=== PATIENT | female | born 1965 | race Caucasian/White ===

== ENCOUNTER 2022-01-12 07:55 | Emergency (ER) | payer OTHER ==
[~2022-01-12] VITALS: Ht 167.6 cm; Wt 60.3 kg
[~2022-01-12 07:55] MED LIST: CITALOPRAM HBR10 MG PO; CITALOPRAM HBR40 MG PO; CLONAZEPAM0.5 MG PO; DULOXETINE HCL30 MG PO; GEODON20 MG PO; LORAZEPAM1 MG PO; PERCOCET 7.5-31 EACH PO; TRAZODONE HCL50 MG PO
[2022-01-12] MEDS ORDERED: MAGNESIUM100 MG PO (08:20)
[2022-01-12] MEDS ORDERED: COQ-10100 MG PO (08:20)
[2022-01-12] MEDS ORDERED: ZINC50 MG PO (08:21)
[2022-01-12] MEDS ORDERED: PREDNISONE20 MG PO (09:01)
== END 2022-01-12 09:23 | disposition home or self-care (01) ==
LOC: ED 07:55
DX: M54.50 Low back pain, unspecified (principal); Z79.899 Other long term (current) drug therapy; Z88.5 Allergy status to narcotic agent
CPT/HCPCS: 99283

== ENCOUNTER 2022-04-22 11:21 | Emergency (ER) | payer OTHER ==
[~2022-04-22] VITALS: Ht 167.6 cm; Wt 54.4 kg
[~2022-04-22 11:21] MED LIST changes: +COQ-10100 MG PO; +MAGNESIUM100 MG PO; +PREDNISONE20 MG PO; +ZINC50 MG PO
[2022-04-22] MEDS ORDERED: CITALOPRAM HBR40 MG PO (11:42)
[2022-04-22] MEDS ORDERED: TRAZODONE HCL50 MG PO (11:43)
[2022-04-22] MEDS ORDERED: CLONAZEPAM0.5 MG PO (16:04)
== END 2022-04-22 16:30 | disposition home or self-care (01) ==
LOC: ED 11:21
DX: G25.9 Extrapyramidal and movement disorder, unspecified (principal); Z88.8 Allergy status to other drugs, medicaments and biological substances; Z88.5 Allergy status to narcotic agent; Z79.899 Other long term (current) drug therapy
CPT/HCPCS: 96374; 96375; 99283-25; J1200; J2060

== ENCOUNTER 2023-01-27 10:40 | Emergency (ER) | payer OTHER ==
[~2023-01-27] VITALS: Ht 167.6 cm; Wt 54.4 kg
--- OUTSIDE RECORDS SUMMARY | 2023-01-27 10:42 | XMS ---
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 E.DNolberto VISIT COUNT (12 MO.) 2 [facility]EC[facility] Cervantes TOTAL 2 NOTE: Visits indicate total known visits. ED/UCC VISIT TRACKING (12 MO.) 01/27/2023 10:41 [facility] TYPE: Emergency COMPLAINT: - MEDICATION REACTION,JERKING,HEADACHE,THROAT BRO 04/22/2022 11:23 [facility] [place] TYPE: Emergency COMPLAINT: - MEDICATION REACTION, JERKING, TWITCHING DIAGNOSES: - Allergy status to other drugs, medicaments and biological substances - Allergy status to narcotic agent - Other retirement (current) drug therapy - Extrapyramidal and movement disorder, unspecified INPATIENT VISIT TRACKING (12 MO.) No inpatient visits to display in this time frame [email or web address]
[2023-01-27] MEDS ORDERED: SERTRALINE HCL150 MG PO (10:57)
[2023-01-27] MEDS ORDERED: HYDROXYZINE HCL25 MG PO (10:57)
== END 2023-01-27 11:56 | disposition home or self-care (01) ==
LOC: ED 10:40
DX: G24.01 Drug induced subacute dyskinesia (principal); T43.225A Adverse effect of selective serotonin reuptake inhibitors, initial encounter; Z88.8 Allergy status to other drugs, medicaments and biological substances; Z88.5 Allergy status to narcotic agent; Z79.899 Other long term (current) drug therapy
CPT/HCPCS: 99283

== ENCOUNTER 2023-12-03 14:17 | Emergency (ER) | payer OTHER ==
[~2023-12-03] VITALS: Ht 167.6 cm; Wt 49.4 kg
--- OUTSIDE RECORDS SUMMARY | ~2023-12-03 | XMS | Continuity of Care Document ---
Demographics + + + | Address | [address] | | | [place] [address] | + + + | Preferred Language | Unknown | + + + | Marital Status | | + + + | Temple Affiliation | Unknown | + + + | Race | White | + + + | Ethnic Group | Not or | + + + Author + + + | Author | [facility] | + + + | Organization | [facility] | + + + | Address | [address] | | | [place] [address] | + + + | Phone | | + + + Care Team Providers + + + + | Care Water Chemist Name | Role | Phone | + + + + Unavailable | Unavailable | + + + + Unavailable | Unavailable | + + + + Allergies No information. Encounters No information. Functional Status No information. Immunizations No information. Medications + + + + | date | description | facility | + + + + | 2023-09-17 00:00 | Ambien 5 MG Oral Tablet | [facility] | | | | | + + + + | 2023-09-20 00:00 | Ambien 5 MG Oral Tablet | [facility] | | | | | + + + + | 2023-09-07 00:00 | Levothyroxine Sodium 50 | [facility] | | | MCG Oral Tablet | | + + + + | 2023-09-20 00:00 | Levothyroxine Sodium 50 | [facility] | | | MCG Oral Tablet | | + + + + | 2023-09-17 00:00 | clonazepam 0.5 MG Oral | [facility] | | | Tablet | | + + + + | 2023-10-13 00:00 | clonazepam 0.5 MG Oral | [facility] | | | Tablet | | + + + + | 2023-10-19 00:00 | clonazepam 0.5 MG Oral | [facility] | | | Tablet | | + + + + | 2023-10-26 00:00 | clonazepam 0.5 MG Oral | [facility] | | | Tablet | | + + + + | 2023-09-17 00:00 | clonazePAM 0.5 MG Oral | [facility] | | | Tablet | | + + + + | 2023-10-13 00:00 | clonazePAM 0.5 MG Oral | [facility] | | | Tablet | | + + + + | 2023-10-19 00:00 | clonazePAM 0.5 MG Oral | [facility] | | | Tablet | | + + + + | 2023-10-26 00:00 | clonazePAM 0.5 MG Oral | [facility] | | | Tablet | | + + + + | 2023-09-17 00:00 | zolpidem tartrate 5 MG | [facility] | | | Oral Tablet [Ambien] | | + + + + | 2023-09-20 00:00 | zolpidem tartrate 5 MG | [facility] | | | Oral Tablet [Ambien] | | + + + + | 2023-09-07 00:00 | levothyroxine sodium 0.05 | [facility] | | | MG Oral Tablet | | + + + + | 2023-09-20 00:00 | levothyroxine sodium 0.05 | [facility] | | | MG Oral Tablet | | + + + + Problems No information. Procedures No information. Results/Labs +--------+--------+ +---------+--------+---------+ | test | date | facility | value | unit | notes | +--------+--------+ +---------+--------+---------+ +-------+ | [facility] | +-------+ +-------+ + + + + + | [facility]SH | 2023-09-20 | [facility] | 118.00 | mIU/ml | (missing) | | | 07:15 | [facility] | | [facility] | | | | +-------+ + + + + + + + | TSH w/FT4 Reflex | + + + + + +---------+ + + | TSH w/FT4 | 2023-09-20 | [facility] | 1.510 | uIU/ml | (missing) | | Reflex | 07:15 | [facility] | | | | | | | [facility] | | | | + + + +---------+ + + + + | ESTRADIOL | + + + + + + + + + | ESTRADIOL | 2023-09-20 | [facility] | <25 pg/ml | (missing) | (missing) | | | 07:15 | [facility] | | | | | | | [facility] | | | | + + + + + + + Social History + + + + | date | description | facility | + + + + | 2023-09-15 00:00 | Never smoked tobacco | [facility] | | | (finding) | | + + + + | 2023-09-15 00:00 | Smoker (finding) | [facility] | | | | | + + + + | 2023-09-17 00:00 | Never smoked tobacco | [facility] | | | (finding) | | + + + + | 2023-09-17 00:00 | Smoker (finding) | [facility] | | | | | + + + + | 2023-11-03 00:00 | Never smoked tobacco | [facility] | | | (finding) | | + + + + | 2023-11-03 00:00 | Smoker (finding) | [facility] | | | | | + + + + Vital Signs + + + + + | date | measurement | value | units | + + + + + | 2023-09-17 00:00 | BMI | 17.6 | 1 | + + + + + | 2023-09-17 00:00 | BSA | 1.5 | 1 | + + + + + | 2023-09-17 00:00 | heart_rate | 1|1| | completed | + + + + + | 2023-09-17 00:00 | heart_rate | 84 | /min | + + + + + | 2023-09-17 00:00 | height_metric | 167.64 | cm | + + + + + | 2023-09-17 00:00 | height_standard | 66 | in | + + + + + | 2023-09-17 00:00 | weight_metric | 49.44 | kg | + + + + + | 2023-09-17 00:00 | weight_standard | 109 | lb | + + + + + | 2023-11-03 00:00 | BMI | 17.3 | 1 | + + + + + | 2023-11-03 00:00 | BSA | 1.5 | 1 | + + + + + | 2023-11-03 00:00 | heart_rate | 1|1| | completed | + + + + + | 2023-11-03 00:00 | heart_rate | 76 | /min | + + + + + | 2023-11-03 00:00 | height_metric | 167.64 | cm | + + + + + | 2023-11-03 00:00 | height_standard | 66 | in | + + + + + | 2023-11-03 00:00 | temperature_metric | 36.11 | C | | | | | | + + + + + | 2023-11-03 00:00 | | 97 | F | | | temperature_standar | | | | | d | | | + + + + + | 2023-11-03 00:00 | weight_metric | 48.53 | kg | + + + + + | 2023-11-03 00:00 | weight_standard | 107 | lb | + + + + +"
[~2023-12-03 14:17] MED LIST changes: +HYDROXYZINE HCL25 MG PO; +SERTRALINE HCL150 MG PO
[2023-12-03] MEDS ORDERED: BUSPIRONE HCL7.5 MG PO (14:56)
[2023-12-03] MEDS ORDERED: LEVOTHYROXINE50 MCG PO (14:56)
[2023-12-03] MEDS ORDERED: MIRTAZAPINE30 MG PO (14:57)
[2023-12-03 15:05] LABS: AMPHETAMINES, URINE NEGATIVE (NEGATIVE); BARBITURATES, URINE NEGATIVE (NEGATIVE); BENZODIAZEPINE, URINE NEGATIVE (NEGATIVE); BUPRENORPHINE, URINE NEGATIVE (NEGATIVE); CANNABINOID, URINE NEGATIVE (NEGATIVE); COCAINE, URINE NEGATIVE (NEGATIVE); ECSTASY, URINE NEGATIVE (NEGATIVE); FENTANYL, URINE NEGATIVE (NEGATIVE); METHADONE, URINE NEGATIVE (NEGATIVE); OPIATES, URINE NEGATIVE (NEGATIVE); OXYCODONE, URINE NEGATIVE (NEGATIVE); PHENCYCLIDINE, URINE NEGATIVE (NEGATIVE)
[2023-12-03 15:39] LABS: BILIRUBIN, URINE NEGATIVE (negative); BLOOD/HGB, URINE SMALL (Negative); KETONE, URINE NEGATIVE (Negative); LEUK ESTERASE, URINE NEGATIVE (negative); NITRITE, URINE NEGATIVE (negative)
[2023-12-03 15:43] LABS: EPITHELIAL CELLS, URINE SQUAMOUS 1+ /lpf (0-1+)
[2023-12-03 15:45] LABS: REFLEX CULTURE, URINE Yes (No)
[2023-12-03 15:54] LABS: MCH 31.7 (27-36)
[2023-12-03 15:56] LABS: BASOPHILS 0.5 % (0-2); EOSINOPHILS 0.4 % (0-6); HEMATOCRIT 40.3 % (35.0-50.0); HEMOGLOBIN 13.8 g/dL (12.0-18.0); LYMPHOCYTES 17.8 % (24-44); MCHC 34.3 g/dl (30-36); MCV 92.6 fl (81-99); MONOCYTES 8.3 % (0-12); PLATELET COUNT 211 K/uL (140-440); RBC 4.35 M/ul (4.3-5.7); RDW 12.9 (10.5-15.0)
[2023-12-03 16:17] LABS: ACETAMINOPHEN 0 ug/mL (10-30); ALBUMIN 3.6 g/dL (3.4-5.0); ALBUMIN/GLOBULIN RATIO 0.97 (1.1-2.4); ALCOHOL, MEDICAL <3 ng/dL (<3); ALKALINE PHOSPHATASE 80 U/L (46-116); ALT (SGPT) 19 U/L (14-59); ANION GAP 11.7 (7-21); AST (SGOT) 14 U/L (15-37); BILIRUBIN, TOTAL 0.4 ng/dL (0.2-1.0); BUN/CREATININE RATIO 17.85 (6.0-28.6); CALCIUM 8.7 mg/dL (8.5-10.1); CARBON DIOXIDE 31 mmol/L (21-32); CHLORIDE 103 mmol/L (98-107); CREATININE, SERUM 0.84 mg/dL (0.55-1.02); GLOMERULAR FILTRATION RATE,EST 81 mL/min (>60); POTASSIUM 3.7 mmol/L (3.5-5.1); PROTEIN, TOTAL 7.3 g/dL (6.4-8.2); SALICYLATE 0.4 mg/dL (2.8-20.0); UREA NITROGEN 15 mg/dL (7-18)
[2023-12-04] MEDS ORDERED: K-TAB ER20 MEQ PO (10:20)
[2023-12-04] MEDS ORDERED: FUROSEMIDE20 MG PO (10:20)
[2023-12-04] MEDS ORDERED: PREDNISONE20 MG PO (10:20)
[2023-12-06 07:33] VITALS: BP 108/62
== END 2023-12-06 07:33 ==
LOC: ED 14:17
PROVIDERS: Emergency Medicine
DX: R45.850 Homicidal ideations (principal); F29 Unspecified psychosis not due to a substance or known physiological condition; Z88.5 Allergy status to narcotic agent; Z88.8 Allergy status to other drugs, medicaments and biological substances; Z79.890 Hormone replacement therapy; Z79.899 Other long term (current) drug therapy
CPT/HCPCS: 36415; 80053; 80307; 81001; 84443; 85025; 87088; 99285; A9270; G0480; U0002

== ENCOUNTER 2024-09-12 10:02 | Emergency (ER) | payer OTHER ==
[~2024-09-12] VITALS: Ht 167.6 cm; Wt 47.1 kg
--- OUTSIDE RECORDS SUMMARY | ~2024-09-12 | XMS | Continuity of Care Document ---
Demographics + + + | Address | [address] | | | [place] [address] | + + + | Preferred Language | Unknown | + + + | Marital Status | | + + + | Anabaptist Affiliation | Unknown | + + + | Race | Unknown | + + + | Ethnic Group | Unknown | + + + Author + + + | Author | [place] | + + + | Organization | [place] | + + + | Address | [address] | | | [place] [address] | + + + | Phone | | + + + Care Team Providers + + + + | Care Frame Changer Name | Role | Phone | + + + + Unavailable | Unavailable | + + + + Unavailable | Unavailable | + + + + Allergies No information. Encounters No information. Functional Status No information. Immunizations No information. Medications + + + + | date | description | facility | + + + + | 2024-07-28 00:00 | traZODone HCl 100 MG Oral | [facility] | | | Tablet | | + + + + | 2024-07-28 00:00 | olanzapine 5 MG Oral | [facility] | | | Tablet | | + + + + | 2024-07-28 00:00 | OLANZapine 5 MG Oral | [facility] | | | Tablet | | + + + + | 2024-07-28 00:00 | trazodone hydrochloride | [facility] | | | 100 MG Oral Tablet | | + + + + Problems No information. Procedures No information. Results/Labs +--------+--------+ +---------+--------+---------+ | test | date | facility | value | unit | notes | +--------+--------+ +---------+--------+---------+ + + | LIPID PANEL | + + + + + +--------+ + + | VLDL | 2024-07-28 | [facility] | 17 | mg/dL | (missing) | | | 12:26 | Medical | | | | | | | Group | | | | + + + +--------+ + + | LDL | 2024-07-28 | [facility] | 151 | mg/dL | (missing) | | | 12:26 | Medical | | | | | | | Group | | | | + + + +--------+ + + | HDL | 2024-07-28 | [facility] | 70.2 | mg/dL | (missing) | | | 12:26 | Medical | | | | | | | Group | | | | + + + +--------+ + + | CHOLESTEROL | 2024-07-28 | [facility] | 238 | mg/dL | (missing) | | | 12:26 | Medical | | | | | | | Group | | | | + + + +--------+ + + | | 2024-07-28 | [facility] | 83 | mg/dL | (missing) | | TRIGLYCERIDE | 12:26 | Medical | | | | | S | | Group | | | | + + + +--------+ + + | NON-HDL | 2024-07-28 | [facility] | 168 | mg/dL | (missing) | | CHOL | 12:26 | Medical | | | | | | | Group | | | | + + + +--------+ + + | CHOL/HDL | 2024-07-28 | [facility] | 3.4 | (missing) | (missing) | | | 12:26 | Medical | | | | | | | Group | | | | + + + +--------+ + + + + | FREE T4/TSH | + + + + + +---------+ + + | TSH, 3rd | 2024-07-28 | [facility] | 0.768 | uIU/ml | (missing) | | GEN. | 12:26 | Medical | | | | | | | Group | | | | + + + +---------+ + + | FREE T4 | 2024-07-28 | [facility] | 1.77 | ng/dl | (missing) | | | 12:26 | Medical | | | | | | | Group | | | | + + + +---------+ + + + + | COMPREHENSIVE METABOLIC PANEL | + + + + + +--------+ + + | GLOBULIN | 2024-07-28 | [facility] | 2.1 | g/dl | (missing) | | | 12:26 | Medical | | | | | | | Group | | | | + + + +--------+ + + | ALKALINE | 2024-07-28 | [facility] | 79 | U/L | (missing) | | PHOS | 12:26 | Medical | | | | | | | Group | | | | + + + +--------+ + + | ALT(SGPT) | 2024-07-28 | [facility] | 10 | U/L | (missing) | | | 12:26 | Medical | | | | | | | Group | | | | + + + +--------+ + + | ALBUMIN | 2024-07-28 | [facility] | 4.5 | g/dl | (missing) | | | 12:26 | Medical | | | | | | | Group | | | | + + + +--------+ + + | A/G RATIO | 2024-07-28 | [facility] | 2.1 | (missing) | (missing) | | | 12:26 | Medical | | | | | | | Group | | | | + + + +--------+ + + | CALCIUM | 2024-07-28 | [facility] | 9.7 | mg/dL | (missing) | | | 12:26 | Medical | | | | | | | Group | | | | + + + +--------+ + + | ANION GAP | 2024-07-28 | [facility] | 13.1 | (missing) | (missing) | | | 12:26 | Medical | | | | | | | Group | | | | + + + +--------+ + + | AST(SGOT) | 2024-07-28 | [facility] | 13 | U/L | (missing) | | | 12:26 | Medical | | | | | | | Group | | | | + + + +--------+ + + | BILIRUBIN, | 2024-07-28 | [facility] | 0.61 | mg/dL | (missing) | | TOTAL | 12:26 | Medical | | | | | | | Group | | | | + + + +--------+ + + | CARBON | 2024-07-28 | [facility] | 29 | meq/L | (missing) | | DIOXIDE | 12:26 | Medical | | | | | | | Group | | | | + + + +--------+ + + | CHLORIDE | 2024-07-28 | [facility] | 103 | meq/L | (missing) | | | 12:26 | Medical | | | | | | | Group | | | | + + + +--------+ + + | CREATININE, | 2024-07-28 | [facility] | 0.62 | mg/dL | (missing) | | SERUM | 12:26 | Medical | | | | | | | Group | | | | + + + +--------+ + + | GLUCOSE | 2024-07-28 | [facility] | 94 | mg/dL | (missing) | | | 12:26 | Medical | | | | | | | Group | | | | + + + +--------+ + + | POTASSIUM | 2024-07-28 | [facility] | 4.1 | meq/L | (missing) | | | 12:26 | Medical | | | | | | | Group | | | | + + + +--------+ + + | PROTEIN | 2024-07-28 | [facility] | 6.6 | g/dL | (missing) | | | 12:26 | Medical | | | | | | | Group | | | | + + + +--------+ + + | SODIUM | 2024-07-28 | [facility] | 141 | meq/L | (missing) | | | 12:26 | Medical | | | | | | | Group | | | | + + + +--------+ + + | UREA | 2024-07-28 | [facility] | 13 | mg/dL | (missing) | | NITROGEN | 12:26 | Medical | | | | | | | Group | | | | + + + +--------+ + + | | 2024-07-28 | [facility] | 21.0 | (missing) | (missing) | | BUN/CREAT.RA | 12:26 | Medical | | | | | NABOR | | Group | | | | + + + +--------+ + + | GFR | 2024-07-28 | [facility] | 103 | ml/min | (missing) | | ESTIMATION | 12:26 | Medical | | | | | | | Group | | | | + + + +--------+ + + +-------+ | CBC | +-------+ + + + +--------+--------+ + | HEMOGLOBIN | 2024-07-28 | [facility] | 13.3 | g/dl | (missing) | | | 12:26 | Medical | | | | | | | Group | | | | + + + +--------+--------+ + | RDW | 2024-07-28 | [facility] | 12.5 | % | (missing) | | | 12:26 | Medical | | | | | | | Group | | | | + + + +--------+--------+ + | HEMATOCRIT | 2024-07-28 | [facility] | 37.5 | % | (missing) | | | 12:26 | Medical | | | | | | | Group | | | | + + + +--------+--------+ + | MONOCYTES | 2024-07-28 | [facility] | 7.4 | % | (missing) | | | 12:26 | Medical | | | | | | | Group | | | | + + + +--------+--------+ + | WBC | 2024-07-28 | [facility] | 3.7 | K/ul | (missing) | | | 12:26 | Medical | | | | | | | Group | | | | + + + +--------+--------+ + | BASOPHILS | 2024-07-28 | [facility] | 0.4 | % | (missing) | | | 12:26 | Medical | | | | | | | Group | | | | + + + +--------+--------+ + | EOSINOPHILS | 2024-07-28 | [facility] | 0.9 | % | (missing) | | | 12:26 | Medical | | | | | | | Group | | | | + + + +--------+--------+ + | LYMPHOCYTES | 2024-07-28 | [facility] | 30.9 | % | (missing) | | | 12:26 | Medical | | | | | | | Group | | | | + + + +--------+--------+ + | NEUTROPHILS | 2024-07-28 | [facility] | 60.4 | % | (missing) | | | 12:26 | Medical | | | | | | | Group | | | | + + + +--------+--------+ + | PLATELET | 2024-07-28 | [facility] | 187 | K/ul | (missing) | | COUNT | 12:26 | Medical | | | | | | | Group | | | | + + + +--------+--------+ + | MCH | 2024-07-28 | [facility] | 32 | pg | (missing) | | | 12:26 | Medical | | | | | | | Group | | | | + + + +--------+--------+ + | MCHC | 2024-07-28 | [facility] | 35 | g/dL | (missing) | | | 12:26 | Medical | | | | | | | Group | | | | + + + +--------+--------+ + | MCV | 2024-07-28 | [facility] | 90.4 | fl | (missing) | | | 12:26 | Medical | | | | | | | Group | | | | + + + +--------+--------+ + | RBC | 2024-07-28 | [facility] | 4.15 | M/ul | (missing) | | | 12:26 | Medical | | | | | | | Group | | | | + + + +--------+--------+ + + + | Reported Physicians | + + + + + + + + + | Reported | 2024-07-28 | [facility] | See Note | (missing) | (missing) | | Physicians | 12:26 | Medical | | | | | | | Group | | | | + + + + + + + + + | Reported Physicians | + + + + + + + + + | Reported | 2024-07-28 | [facility] | See Note | (missing) | (missing) | | Physicians | 12:26 | Medical | | | | | | | Group | | | | + + + + + + + Social History + + + + | date | description | facility | + + + + | 2024-07-31 00:00 | Never smoked tobacco | [facility] | | | (finding) | | + + + + | 2024-07-31 00:00 | Smoker (finding) | [facility] | + + + + Vital Signs + + + + + | date | measurement | value | units | + + + + + | 2024-07-28 00:00 | BMI | 18 | 1 | + + + + + | 2024-07-28 00:00 | BP_diastolic | 78 | mmHg | + + + + + | 2024-07-28 00:00 | BP_systolic | 122 | mmHg | + + + + + | 2024-07-28 00:00 | BSA | 1.6 | m2 | + + + + + | 2024-07-28 00:00 | heart_rate | 1|1| | completed | + + + + + | 2024-07-28 00:00 | heart_rate | 81 | /min | + + + + + | 2024-07-28 00:00 | height_metric | 167.64 | cm | + + + + + | 2024-07-28 00:00 | height_standard | 66 | in | + + + + + | 2024-07-28 00:00 | o2_saturation | 98 | % | + + + + + | 2024-07-28 00:00 | temperature_metric | 36.78 | C | | | | | | + + + + + | 2024-07-28 00:00 | | 98.2 | F | | | temperature_standar | | | | | d | | | + + + + + | 2024-07-28 00:00 | weight_metric | 50.71 | kg | + + + + + | 2024-07-28 00:00 | weight_standard | 111.8 | lb | + + + + +"
[~2024-09-12 10:02] MED LIST changes: +BUSPIRONE HCL7.5 MG PO; +FLEET ENEMA133 ML PR; +FUROSEMIDE20 MG PO; +GLYCERIN1 EACH PR; +K-TAB ER20 MEQ PO; +LEVOTHYROXINE50 MCG PO; +MIRALAX17 GM PO; +MIRTAZAPINE30 MG PO; +OLANZAPINE2.5 MG PO
[2024-09-12 10:41] LABS: BASOPHILS 0.7 % (0-2); EOSINOPHILS 0.3 % (0-6); HEMATOCRIT 39.8 % (35.0-50.0); HEMOGLOBIN 13.8 g/dL (12.0-18.0); LYMPHOCYTES 27.5 % (24-44); MCH 31.8 (27-36); MCHC 34.7 g/dl (30-36); MCV 91.5 fl (81-99); MONOCYTES 6.2 % (0-12); NEUTROPHILS 65.3 % (39-80); PLATELET COUNT 170 K/uL (140-440); RBC 4.35 M/ul (4.3-5.7); RDW 12.3 (10.5-15.0)
[2024-09-12 11:09] LABS: ACETAMINOPHEN 0 ug/mL (10-30); ALBUMIN 3.8 g/dL (3.4-5.0); ALBUMIN/GLOBULIN RATIO 1.15 (1.1-2.4); ALCOHOL, MEDICAL <3 ng/dL (<3); ALKALINE PHOSPHATASE 77 U/L (46-116); ALT (SGPT) 14 U/L (14-59); ANION GAP 7.6 (7-21); AST (SGOT) 14 U/L (15-37); BILIRUBIN, TOTAL 0.5 ng/dL (0.2-1.0); BUN/CREATININE RATIO 15.78 (6.0-28.6); CALCIUM 9.4 mg/dL (8.5-10.1); CARBON DIOXIDE 32 mmol/L (21-32); CHLORIDE 105 mmol/L (98-107); CREATININE, SERUM 0.76 mg/dL (0.55-1.02); GLOMERULAR FILTRATION RATE,EST 90 mL/min (>60); POTASSIUM 3.6 mmol/L (3.5-5.1); PROTEIN, TOTAL 7.1 g/dL (6.4-8.2); SALICYLATE 0.9 mg/dL (2.8-20.0); TSH, 3RD GENERATION 1.038 uIU/mL (0.358-3.740); UREA NITROGEN 12 mg/dL (7-18)
[2024-09-12 11:42] LABS: AMPHETAMINES, URINE NEGATIVE (NEGATIVE); BARBITURATES, URINE NEGATIVE (NEGATIVE); BENZODIAZEPINE, URINE NEGATIVE (NEGATIVE); BUPRENORPHINE, URINE NEGATIVE (NEGATIVE); CANNABINOID, URINE NEGATIVE (NEGATIVE); COCAINE, URINE NEGATIVE (NEGATIVE); ECSTASY, URINE POSITIVE (NEGATIVE); FENTANYL, URINE NEGATIVE (NEGATIVE); METHADONE, URINE NEGATIVE (NEGATIVE); OPIATES, URINE NEGATIVE (NEGATIVE); OXYCODONE, URINE NEGATIVE (NEGATIVE); PHENCYCLIDINE, URINE NEGATIVE (NEGATIVE)
[2024-09-12 15:21] VITALS: BP 126/86
== END 2024-09-12 15:23 | disposition home or self-care (01) ==
LOC: ED 10:02
PROVIDERS: Emergency Medicine
DX: F41.9 Anxiety disorder, unspecified (principal); F42.9 Obsessive-compulsive disorder, unspecified; Z88.5 Allergy status to narcotic agent; Z88.8 Allergy status to other drugs, medicaments and biological substances; Z79.890 Hormone replacement therapy; Z79.899 Other long term (current) drug therapy
CPT/HCPCS: 36415; 80053; 80307; 84443; 85025; 99284; G0480

== ENCOUNTER 2024-09-14 12:36 | Emergency (ER) | payer OTHER ==
[~2024-09-14] VITALS: Ht 167.6 cm; Wt 46.6 kg
--- OUTSIDE RECORDS SUMMARY | ~2024-09-14 | XMS | Continuity of Care Document ---
Demographics + + + | Address | [address] | | | [place] [address] | + + + | Preferred Language | Unknown | + + + | Marital Status | | + + + | Latter Day Affiliation | Unknown | + + + | Race | White | + + + | Ethnic Group | Unknown | + + + Author + + + | Author | Center | + + + | Organization | Center | + + + | Address | [address] | | | [place] [address] | + + + | Phone | | + + + Care Team Providers + + + + | Care Electrician Powerhouse Name | Role | Phone | + [...]
[2024-09-14] MEDS ORDERED: TRAZODONE HCL100 MG PO (12:54)
[2024-09-14 14:23] LABS: BILIRUBIN, URINE POSITIVE (negative); BLOOD/HGB, URINE NEGATIVE (Negative); KETONE, URINE SMALL (Negative); LEUK ESTERASE, URINE NEGATIVE (negative); NITRITE, URINE NEGATIVE (negative); PH, URINE 5.5 (5-7)
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
[2024-09-14 14:44] LABS: AMPHETAMINES, URINE NEGATIVE (NEGATIVE); BARBITURATES, URINE NEGATIVE (NEGATIVE); BENZODIAZEPINE, URINE NEGATIVE (NEGATIVE); BUPRENORPHINE, URINE NEGATIVE (NEGATIVE); CANNABINOID, URINE NEGATIVE (NEGATIVE); COCAINE, URINE NEGATIVE (NEGATIVE); ECSTASY, URINE POSITIVE (NEGATIVE); FENTANYL, URINE NEGATIVE (NEGATIVE); METHADONE, URINE NEGATIVE (NEGATIVE); OPIATES, URINE NEGATIVE (NEGATIVE); OXYCODONE, URINE NEGATIVE (NEGATIVE); PHENCYCLIDINE, URINE NEGATIVE (NEGATIVE)
[2024-09-14] MEDS ORDERED: KLONOPIN0.5 MG PO (15:21)
[2024-09-14 15:37] LABS: BASOPHILS 0.5 % (0-2); EOSINOPHILS 0.2 % (0-6); HEMATOCRIT 39.4 % (35.0-50.0); LYMPHOCYTES 22.5 % (24-44); MCH 32.2 (27-36); MCHC 35.5 g/dl (30-36); MCV 90.8 fl (81-99); MONOCYTES 6.6 % (0-12); NEUTROPHILS 70.2 % (39-80); PLATELET COUNT 184 K/uL (140-440); RBC 4.34 M/ul (4.3-5.7); RDW 12.3 (10.5-15.0)
[2024-09-14 16:00] LABS: ACETAMINOPHEN 0 ug/mL (10-30); ALBUMIN 3.8 g/dL (3.4-5.0); ALBUMIN/GLOBULIN RATIO 1.19 (1.1-2.4); ALCOHOL, MEDICAL <3 ng/dL (<3); ALKALINE PHOSPHATASE 76 U/L (46-116); ALT (SGPT) 16 U/L (14-59); ANION GAP 8.1 (7-21); AST (SGOT) 14 U/L (15-37); BILIRUBIN, TOTAL 0.7 ng/dL (0.2-1.0); CALCIUM 9.3 mg/dL (8.5-10.1); CARBON DIOXIDE 31 mmol/L (21-32); CHLORIDE 103 mmol/L (98-107); CREATININE, SERUM 0.71 mg/dL (0.55-1.02); GLOMERULAR FILTRATION RATE,EST 98 mL/min (>60); POTASSIUM 4.1 mmol/L (3.5-5.1); SALICYLATE 0.4 mg/dL (2.8-20.0); TSH, 3RD GENERATION 1.225 uIU/mL (0.358-3.740); UREA NITROGEN 12 mg/dL (7-18)
[2024-09-14] MEDS ORDERED: clonazePAM 1 MG TAB PO PRN (16:00)
[2024-09-14] MEDS ORDERED: TRAZODONE HCL 100 MG TAB PO SCH (21:00)
[2024-09-14] MEDS ORDERED: OLANZapine 2.5 MG TAB PO SCH (21:00)
--- NOTE | 2024-09-14 21:14 | EKG ---
[facility] [address] [place] [address] Signed Normal sinus rhythm T wave abnormality, consider anterior ischemia Abnormal ECG No previous ECGs available Confirmed by Kevin Millard MD () on 09/14/2024 9:14:13 PM Electronically Signed By: KEVIN MILLARD MD 09/14/242113 PATIENT NAME: SHANDRA BLOOD Electrocardiogram DATE OF : 65 PHYSICIAN: KEVIN MILLARD MD REPORT #: [id number] REPORT IS CONFIDENTIAL AND NOT TO BE RELEASED WITHOUT AUTHORIZATION
[2024-09-15] MEDS ORDERED: LEVOTHYROXINE SODIUM 50 MCG TAB PO SCH (07:00)
[2024-09-15 09:39] VITALS: BP 126/76
== END 2024-09-15 09:39 ==
LOC: ED 12:36
PROVIDERS: Emergency Medicine
DX: R45.851 Suicidal ideations (principal); Z88.8 Allergy status to other drugs, medicaments and biological substances; Z88.5 Allergy status to narcotic agent; Z79.890 Hormone replacement therapy; Z79.899 Other long term (current) drug therapy
CPT/HCPCS: 36415; 80053; 80307; 81003; 84443; 85025; 93005; 93010; G0480; U0002

== ENCOUNTER 2024-10-09 12:24 | Emergency (ER) | payer OTHER ==
[~2024-10-09] VITALS: Ht 167.6 cm; Wt 45.0 kg
--- OUTSIDE RECORDS SUMMARY | ~2024-10-09 | XMS | Continuity of Care Document ---
Demographics + + + | Address | [address] | | | [place] [address] | + + + | Preferred Language | Unknown | + + + | Marital Status | | + + + | Adventism Affiliation | Unknown | + + + | Race | White | + + + | Ethnic Group | Unknown | + + + Author + + + | Author | [facility] | + + + | Organization | [facility] | + + + | Address | [address] | | | [place] [address] | + + + | Phone | | + + + Care Team Providers + + + + | Care Nurse Clinician Name | Role | Phone | + [...]
[~2024-10-09 12:24] MED LIST changes: +KLONOPIN0.5 MG PO; +TRAZODONE HCL100 MG PO
--- OUTSIDE RECORDS SUMMARY | 2024-10-09 12:32 | XMS ---
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 Nicole VISIT COUNT (12 MO.) 6 CECILLE Cervantes TOTAL 6 NOTE: Visits indicate total known visits. ED/UCC VISIT TRACKING (12 MO.) 10/09/2024 12:26 [facility] [place] TYPE: Emergency COMPLAINT: - MEDICAL CLEARANCE 09/14/2024 12:36 [facility] [place] TYPE: Emergency COMPLAINT: - MEDICAL CLEARANCE DIAGNOSES: - Allergy status to narcotic agent - Allergy status to other drugs, medicaments and biological substances - Hormone replacement therapy - Other assisted (current) drug therapy - Suicidal ideations 09/12/2024 10:02 [facility] [place] TYPE: Emergency COMPLAINT: - MEDICAL CLEARANCE DIAGNOSES: - Allergy status to narcotic agent - Allergy status to other drugs, medicaments and biological substances - Anxiety disorder, unspecified - Encounter for other general examination - Hormone replacement therapy - Obsessive-compulsive disorder, unspecified - Other long term acute care registered nurse (current) drug therapy 08/09/2024 13:23 [facility] [place] TYPE: Emergency COMPLAINT: - MEDICAL CLEARANCE DIAGNOSES: - Allergy status to narcotic agent - Allergy status to other drugs, medicaments and biological substances - Anxiety disorder, unspecified - Depression, unspecified - Encounter for other general examination - Hormone replacement therapy - Other long term acute care registered nurse (current) drug therapy 01/13/2024 08:05 [facility] [place] TYPE: Emergency COMPLAINT: - POSS SM BOWEL OBSTRUCTION DIAGNOSES: - Allergy status to narcotic agent - Allergy status to other drugs, medicaments and biological substances - Constipation, unspecified - Other long term acute care registered nurse (current) drug therapy 12/03/2023 14:18 [facility] [place] TYPE: Emergency COMPLAINT: - MEDICAL CLEARANCE DIAGNOSES: - Allergy status to narcotic agent - Allergy status to other drugs, medicaments and biological substances - Homicidal ideations - Hormone replacement therapy - Other assisted (current) drug therapy - Unspecified psychosis not due to a substance or known physiological condition INPATIENT VISIT TRACKING (12 MO.) 12/06/2023 10:56 [facility] [place] TYPE: Psychiatric Services DIAGNOSES: [...] Post-traumatic stress disorder, unspecified 2. Suicidal ideations [email or web address]
[2024-10-09 13:20] LABS: BASOPHILS 0.5 % (0-2); EOSINOPHILS 0.1 % (0-6); HEMATOCRIT 42.8 % (35.0-50.0); HEMOGLOBIN 14.8 g/dL (12.0-18.0); LYMPHOCYTES 16.4 % (24-44); MCH 32.1 (27-36); MCHC 34.6 g/dl (30-36); MCV 92.8 fl (81-99); MONOCYTES 8.1 % (0-12); NEUTROPHILS 74.9 % (39-80); PLATELET COUNT 323 K/uL (140-440); RBC 4.62 M/ul (4.3-5.7); RDW 13.2 (10.5-15.0)
[2024-10-09 13:41] LABS: ACETAMINOPHEN 0 ug/mL (10-30); ALBUMIN/GLOBULIN RATIO 1.14 (1.1-2.4); ALCOHOL, MEDICAL <3 ng/dL (<3); ALKALINE PHOSPHATASE 70 U/L (46-116); ALT (SGPT) 25 U/L (14-59); AST (SGOT) 19 U/L (15-37); BILIRUBIN, TOTAL 0.4 ng/dL (0.2-1.0); BUN/CREATININE RATIO 15.47 (6.0-28.6); CALCIUM 9.1 mg/dL (8.5-10.1); CARBON DIOXIDE 31 mmol/L (21-32); CHLORIDE 104 mmol/L (98-107); CREATININE, SERUM 0.84 mg/dL (0.55-1.02); GLOMERULAR FILTRATION RATE,EST 80 mL/min (>60); PROTEIN, TOTAL 7.5 g/dL (6.4-8.2); SALICYLATE 1.6 mg/dL (2.8-20.0); UREA NITROGEN 13 mg/dL (7-18)
[2024-10-09] MEDS ORDERED: clonazePAM 1 MG TAB PO ONE ×2 (13:45→21:15)
[2024-10-09] MEDS ORDERED: OLANZapine 10 MG TABDIS PO ONE (13:45)
[2024-10-09 14:47] LABS: BILIRUBIN, URINE POSITIVE (negative); BLOOD/HGB, URINE TRACE-L (Negative); KETONE, URINE TRACE (Negative); LEUK ESTERASE, URINE NEGATIVE (negative); NITRITE, URINE NEGATIVE (negative); PH, URINE 5.5 (5-7)
[2024-10-09 14:53] LABS: CRYSTALS, URINE AMORPHOUS PHOSPH 1+ (0-1+); EPITHELIAL CELLS, URINE SQUAMOUS 1+ /lpf (0-1+); WHITE BLOOD CELLS, URINE 0-1 /HPF (0-5)
[2024-10-09 14:54] LABS: CASTS, URINE HYALINE 1+ \\lpf; REFLEX CULTURE, URINE No (No)
[2024-10-09 15:07] LABS: AMPHETAMINES, URINE NEGATIVE (NEGATIVE); BARBITURATES, URINE NEGATIVE (NEGATIVE); BENZODIAZEPINE, URINE NEGATIVE (NEGATIVE); BUPRENORPHINE, URINE NEGATIVE (NEGATIVE); CANNABINOID, URINE NEGATIVE (NEGATIVE); COCAINE, URINE NEGATIVE (NEGATIVE); ECSTASY, URINE NEGATIVE (NEGATIVE); FENTANYL, URINE NEGATIVE (NEGATIVE); METHADONE, URINE NEGATIVE (NEGATIVE); OPIATES, URINE NEGATIVE (NEGATIVE); OXYCODONE, URINE NEGATIVE (NEGATIVE); PHENCYCLIDINE, URINE NEGATIVE (NEGATIVE)
[2024-10-09] MEDS ORDERED: OLANZapine 10 MG TAB PO ONE (21:15)
[2024-10-10] MEDS ORDERED: OLANZapine 10 MG TABDIS PO ONE (08:45)
[2024-10-10] MEDS ORDERED: clonazePAM 0.5 MG TAB PO ONE ×2 (08:45→10:45)
[2024-10-10] MEDS ORDERED: clonazePAM 1 MG TAB PO SCH (21:00)
[2024-10-10] MEDS ORDERED: OLANZapine 10 MG TABDIS PO SCH (21:00)
[2024-10-11] MEDS ORDERED: ZOLPIDEM TARTRATE 5 MG TAB PO ONE (02:30)
[2024-10-11] MEDS ORDERED: ACETAMINOPHEN 500 MG TAB PO ONE (02:45)
[2024-10-11] MEDS ORDERED: OLANZapine 10 MG TABDIS PO SCH (09:00)
[2024-10-11] MEDS ORDERED: OLANZapine 2.5 MG TAB PO ONE (10:45)
[2024-10-11 12:58] LABS: INFLUENZA B NAA NEGATIVE (NEGATIVE); RESPIRATORY SYNCYTIAL VIR NAA NEGATIVE (NEGATIVE)
[2024-10-11] MEDS ORDERED: DOXEPIN HCL 25 MG CAP PO SCH (21:00)
[2024-10-11] MEDS ORDERED: ZOLPIDEM TARTRATE 5 MG TAB PO SCH (21:00)
[2024-10-11] MEDS ORDERED: ACETAMINOPHEN 325 MG TAB PO PRN (23:45)
[2024-10-12] MEDS ORDERED: OLANZapine 10 MG TABDIS PO SCH (09:00)
[2024-10-12] MEDS ORDERED: OLANZapine 10 MG TABDIS ONE (09:04)
--- NOTE | 2024-10-12 14:00 | EKG ---
[facility] [address] [facility] [address] [place] [address] Signed Normal sinus rhythm Septal infarct , age undetermined Abnormal ECG When compared with ECG of 14-SEP-2024 15:50, Septal infarct is now present T wave inversion less evident in Anterior leads Confirmed by Kevin Millard MD () on 10/12/2024 2:00:15 PM Electronically Signed By: KEVIN MILLARD MD 10/12/24 1400 PATIENT NAME: SHANDRA BLOOD Electrocardiogram DATE OF : 65 PHYSICIAN: KEVIN MILLARD MD REPORT #: [id number] REPORT IS CONFIDENTIAL AND NOT TO BE RELEASED WITHOUT AUTHORIZATION
[2024-10-13] MEDS ORDERED: ZOLPIDEM TARTRATE 5 MG TAB PO ONE (01:30)
[2024-10-13 07:46] VITALS: BP 120/82
== END 2024-10-13 07:46 ==
LOC: ED 12:24
PROVIDERS: Emergency Medicine
DX: F41.9 Anxiety disorder, unspecified (principal); E03.9 Hypothyroidism, unspecified; Z88.5 Allergy status to narcotic agent; Z88.8 Allergy status to other drugs, medicaments and biological substances; Z79.890 Hormone replacement therapy; Z79.899 Other long term (current) drug therapy
CPT/HCPCS: 36415; 80053; 80307; 81001; 84443; 85025; 87502; 99284; A9270; G0480; Q3014; U0002

== ENCOUNTER 2025-05-23 14:44 | Emergency (ER) | payer OTHER ==
[~2025-05-23] VITALS: Ht 167.6 cm; Wt 56.0 kg
[2025-05-23] MEDS ORDERED: RIVASTIGMINE1.5 MG PO (14:59)
[2025-05-23] MEDS ORDERED: CLONAZEPAM1 MG PO (14:59)
[2025-05-23] MEDS ORDERED: OLANZAPINE10 MG PO (14:59)
[2025-05-23] MEDS ORDERED: TRAZODONE HCL100 MG PO (14:59)
[2025-05-23] MEDS ORDERED: SERTRALINE HCL100 MG PO (14:59)
[2025-05-23 15:15] LABS: BASOPHILS 0 % (0.1-1.2); EOSINOPHILS 0 % (0.7-5.8); LYMPHOCYTES 19.0 % (19.3-51.7); MCH 30.3 PG (25.6-32.2); MCHC 34.4 g/dL (32.2-35.5); MCV 88.2 fL (79.4-94.8); MONOCYTES 6.6 % (4.7-12.5); NEUTROPHILS 74.2 % (34.0-71.1); RBC 3.99 M/uL (3.93-5.22)
[2025-05-23 15:45] LABS: ALCOHOL, MEDICAL <3 ng/dL (<3); ALT (SGPT) 19 U/L (14-59); AST (SGOT) 14 U/L (15-37); GLOMERULAR FILTRATION RATE,EST 104 mL/min (>60); PROTEIN, TOTAL 6.7 g/dL (6.4-8.2); TSH, 3RD GENERATION 0.856 uIU/mL (0.358-3.740); UREA NITROGEN 12 mg/dL (7-18)
[2025-05-23 15:57] LABS: BLOOD/HGB, URINE NEGATIVE (Negative); KETONE, URINE NEGATIVE (Negative); LEUK ESTERASE, URINE NEGATIVE (negative); NITRITE, URINE NEGATIVE (negative)
[2025-05-23 16:12] LABS: AMPHETAMINES, URINE NEGATIVE (NEGATIVE); BARBITURATES, URINE NEGATIVE (NEGATIVE); BENZODIAZEPINE, URINE POSITIVE (NEGATIVE); CANNABINOID, URINE NEGATIVE (NEGATIVE); COCAINE, URINE NEGATIVE (NEGATIVE); ECSTASY, URINE POSITIVE (NEGATIVE); FENTANYL, URINE NEGATIVE (NEGATIVE); METHADONE, URINE NEGATIVE (NEGATIVE); OPIATES, URINE NEGATIVE (NEGATIVE); OXYCODONE, URINE NEGATIVE (NEGATIVE); PHENCYCLIDINE, URINE NEGATIVE (NEGATIVE)
[2025-05-23] MEDS ORDERED: TRAZODONE HCL 100 MG TAB PO SCH (21:00)
[2025-05-23] MEDS ORDERED: TRAZODONE HCL 50 MG TAB PO SCH (21:00)
[2025-05-23] MEDS ORDERED: clonazePAM 1 MG TAB PO SCH (21:00)
[2025-05-23] MEDS ORDERED: ACETAMINOPHEN 500 MG TAB PO ONE (21:00)
[2025-05-23] MEDS ORDERED: OLANZapine 10 MG TAB PO SCH (21:00)
[2025-05-24] MEDS ORDERED: LEVOTHYROXINE SODIUM 50 MCG TAB PO SCH (07:00)
[2025-05-24] MEDS ORDERED: SERTRALINE HCL 100 MG TAB PO SCH (09:00)
[2025-05-24 10:44] VITALS: BP 138/90
== END 2025-05-24 10:44 | disposition home or self-care (01) ==
LOC: ED 14:44
PROVIDERS: Emergency Medicine
DX: F41.9 Anxiety disorder, unspecified (principal); E03.9 Hypothyroidism, unspecified; Z79.899 Other long term (current) drug therapy; Z88.5 Allergy status to narcotic agent; Z88.8 Allergy status to other drugs, medicaments and biological substances
CPT/HCPCS: 36415; 80053; 80307; 81003; 84443; 85025; 99283; A9270; G0480

== ENCOUNTER 2025-09-05 12:12 | Emergency (ER) | payer OTHER ==
[~2025-09-05] VITALS: Ht 167.6 cm; Wt 57.8 kg
[~2025-09-05 12:12] MED LIST changes: +CLONAZEPAM1 MG PO; +OLANZAPINE10 MG PO; +RIVASTIGMINE1.5 MG PO; +SERTRALINE HCL100 MG PO
[2025-09-05 12:40] LABS: BASOPHILS 0 % (0.1-1.2); EOSINOPHILS 0 % (0.7-5.8); LYMPHOCYTES 21.4 % (19.3-51.7); MCH 30.4 PG (25.6-32.2); MCHC 33.7 g/dL (32.2-35.5); MCV 90.1 fL (79.4-94.8); MONOCYTES 6.7 % (4.7-12.5); NEUTROPHILS 71.7 % (34.0-71.1); RBC 4.15 M/uL (3.93-5.22)
[2025-09-05 13:09] LABS: ALCOHOL, MEDICAL <3 ng/dL (<3); ALT (SGPT) 24 U/L (14-59); AST (SGOT) 15 U/L (15-37); GLOMERULAR FILTRATION RATE,EST 99 mL/min (>60); PROTEIN, TOTAL 7.1 g/dL (6.4-8.2); TSH, 3RD GENERATION 1.446 uIU/mL (0.358-3.740); UREA NITROGEN 13 mg/dL (7-18)
[2025-09-05 14:30] VITALS: BP 97/82
== END 2025-09-05 14:30 | disposition home or self-care (01) ==
LOC: ED 12:12
PROVIDERS: Emergency Medicine
DX: F41.8 Other specified anxiety disorders (principal); Z88.5 Allergy status to narcotic agent; Z79.899 Other long term (current) drug therapy; Z88.8 Allergy status to other drugs, medicaments and biological substances
CPT/HCPCS: 36415; 80053; 80307; 84443; 85025; 99283; G0480